=== PATIENT | male | born 1980 | race Caucasian/White ===

== ENCOUNTER 2021-05-24 12:58 | Emergency (ER) | payer OTHER ==
[~2021-05-24 12:58] MED LIST: IBUPROFEN400 MG PO; IBUPROFEN600 MG PO
[2021-05-24 14:04] LABS: HEMOGLOBIN 16.5 gm/dl (14.0-17.5); RED BLOOD COUNT 5.88 M/UL (4.20-5.50)
[2021-05-24 14:24] LABS: BUN/CREATININE RATIO 13 (0-10)
[2021-05-24] MEDS ORDERED: BENTYL 20MG TAB20 MG PO (14:47)
[2021-05-24] MEDS ORDERED: ZOFRAN ODT 4 MG4 MG SL (14:47)
== END 2021-05-24 14:55 | disposition home or self-care (01) ==
LOC: ER1 12:58
PROVIDERS: Physician Assistant
DX: U07.1 COVID-19 (principal); F17.200 Nicotine dependence, unspecified, uncomplicated
CPT/HCPCS: 80053; 81001; 85025; 99284; U0003